=== PATIENT | female | born 1975 | race Caucasian/White ===

== ENCOUNTER 2016-07-04 12:21 | Emergency (ER) | payer OTHER, MEDICAID ==
[~2016-07-04] VITALS: Ht 177.8 cm; Wt 131.0 kg
[~2016-07-04 12:21] MED LIST: PROV10TA PO; Z.0.NO CURRENT MEDS
[2016-07-04 12:22] VITALS: BP 134/80; PULSE 85; RESP 15; TEMP 98.2; O2SAT 97
--- NOTE | 2016-07-04 12:43 | PD ---
HPI Chief Complaint: GI Complaint Time Seen by Provider: 12:28 Travel History International Travel<30 days: No Contact w/Intl Traveler<30days: No Traveled to known affect area: No History of Present Illness HPI This is a 40-year-old female who has a history of intractable vomiting who presents to the emergency department with several days of nausea, constant, moderate severity associated with multiple episodes of emesis yesterday. She denies any abdominal pain, fevers, dysuria, diarrhea or constipation. She's had 2 C-sections in the past. She's had problems with this for years and has been hospitalized several times. She's had multiple diagnostic studies including a capsule endoscopy which never shows anything. She denies marijuana use. She says the only thing that helps her is when she takes a hot shower and 2 months ago she moved to a new apartment where the shower is not as good as her old one. She doesn't take anything for nausea at home. She is concerned because in the past she's had low potassium and she wanted to get that checked. PFSH Past Medical History Anemia: Yes Arthritis: No Asthma: No Autoimmune Disease: No Blood Disorders: No Anxiety: Yes Depression: No Heart Rhythm Problems: No Cancer: No Cardiovascular Problems: No High Cholesterol: No Chemotherapy: No Chest Pain: No Congestive Heart Failure: No COPD: No Cerebrovascular Accident: No Diabetes: No Diminished Hearing: No Endocrine: No Gastrointestinal Disorders: Yes GERD: Yes Glaucoma: No Genitourinary: No Headaches: No Hepatitis: No Hiatal Hernia: No Hypertension: No Immune Disorder: No Kidney Stones: No Musculoskeletal: No Neurologic: No Psychiatric: No Respiratory: No Myocardial Infarction: No Radiation Therapy: No Renal Failure: No Seizures: No Sickle Cell Disease: No Sleep Apnea: No Thyroid Disease: No Ulcer: No ?: Not : 2 Para: 2 Miscarriage: 0 Past Surgical History Abdominal Surgery: No AICD: No Cardiac Surgery: No Section: Yes (x2) Ear Surgery: No Endocrine Surgery: No Eye Surgery: No Genitourinary Surgery: No Gynecologic Surgery: No Joint Replacement: No Oral Surgery: No Pacemaker: No Thoracic Surgery: No Social History Alcohol Use: No Tobacco Use: No Substance Use: No Allergies-Medications (Allergen,Severity, Reaction): Coded Allergies: No Known Allergies (Verified , 07/04/16) Reported Meds & Prescriptions Reported Meds & Active Scripts Active No Active Prescriptions or Reported Medications Review of Systems Except as stated in HPI: all other systems reviewed are Neg Physical Exam Narrative GENERAL:Well appearing, no acute distress SKIN: Warm and dry. HEAD: Atraumatic. Normocephalic. EYES: Pupils equal and round. No injection or drainage. ENT: Moist mucous membranes NECK: Trachea midline. CARDIOVASCULAR: Regular rate and rhythm. No murmur appreciated. RESPIRATORY: Clear to auscultation. Breath sounds equal bilaterally. GASTROINTESTINAL: Abdomen soft, non-tender, nondistended. Bowel sounds in all 4 quadrants. MUSCULOSKELETAL: No obvious deformities. NEUROLOGICAL: Awake and alert. No obvious cranial nerve deficits. Moving all extremities. PSYCHIATRIC: Appropriate mood and affect; insight and judgment normal. Data Data Last Documented VS Vital Signs Date Time Temp Pulse Resp B/P Pulse Ox O2 Delivery O2 Flow Rate FiO2 07/04/16 12:22 98.2 85 15 134/80 97 Orders Complete Blood Count With Diff (07/04/16 12:41) Comprehensive Metabolic Panel (07/04/16 12:41) Lipase (07/04/16 12:41) Ed Urine Pregnancytest Poc (07/04/16 12:41) Metoclopramide Inj (Reglan Inj) (07/04/16 12:45) Sodium Chlor 0.9% 1000 Ml Inj (Ns 1000 M (07/04/16 12:45) Labs Laboratory Tests Test 07/04/16 12:45 White Blood Count 9.1 TH/MM3 Red Blood Count 4.52 MIL/MM3 Hemoglobin 12.2 GM/DL Hematocrit 36.7 % Mean Corpuscular Volume 81.1 FL Mean Corpuscular Hemoglobin 27.0 PG Mean Corpuscular Hemoglobin 33.3 % Concent Red Cell Distribution Width 17.2 % Platelet Count 224 TH/MM3 Mean Platelet Volume 9.1 FL Neutrophils (%) (Auto) 71.3 % Lymphocytes (%) (Auto) 20.9 % Monocytes (%) (Auto) 6.8 % Eosinophils (%) (Auto) 0.5 % Basophils (%) (Auto) 0.5 % Neutrophils # (Auto) 6.5 TH/MM3 Lymphocytes # (Auto) 1.9 TH/MM3 Monocytes # (Auto) 0.6 TH/MM3 Eosinophils # (Auto) 0.0 TH/MM3 Basophils # (Auto) 0.0 TH/MM3 CBC Comment DIFF FINAL Differential Comment Sodium Level 137 MEQ/L Potassium Level 3.2 MEQ/L Chloride Level 104 MEQ/L Carbon Dioxide Level 24.8 MEQ/L Anion Gap 8 MEQ/L Blood Urea Nitrogen 10 MG/DL Creatinine 0.81 MG/DL Estimat Glomerular Filtration 79 ML/MIN Rate Random Glucose 81 MG/DL Calcium Level 8.4 MG/DL Total Bilirubin 0.6 MG/DL Aspartate Amino Transf 16 U/L (AST/SGOT) Alanine Aminotransferase 17 U/L (ALT/SGPT) Alkaline Phosphatase 59 U/L Total Protein 7.9 GM/DL Albumin 3.5 GM/DL Lipase 102 U/L [facility] Medical Decision Making Medical Screen Exam Complete: Yes Emergency Medical Condition: Yes Interpretation(s) Afebrile, no tachycardia, normotensive No leukocytosis Mild hypokalemia Lipase is normal Differential Diagnosis Dehydration, electrolyte abnormality, gastroparesis, cyclic vomiting syndrome, Narrative Course This is a 40-year-old female who presents to the emergency department with nausea and vomiting. She says this is fairly chronic for her. She was placed on a monitor and he was established. Labs were obtained which demonstrates some mild hypokalemia. This was placed in the emergency Department. I think she is safe for discharge. Diagnosis Primary Impression: Cyclical vomiting Qualified Code: G43.A0 - Non-intractable cyclical vomiting with nausea Patient Instructions: General Instructions Additional Instructions: If you develop severe or worsening abdominal pain, fever>100.4, persistent vomiting or inability to eat or drink return to the emergency department immediately. Follow up with your primary care physician in 1-2 days for a check-up. Med/Other Pt SpecificInfo: Prescription(s) given Scripts Metoclopramide (Reglan)10 Mg Tab10 Mg PO QID PRN (NAUSEA) #28 TAB Ref 0 Prov:Pilar Brown MD 07/04/16 Disposition: 01 DISCHARGE HOME Condition: Stable Pilar Brown MD Jul 04, 2016 12:43
[2016-07-04] MEDS ORDERED: SODIUM CHLOR 0.9% 1000 ML INJ 1,000 ML IV ONE (12:45)
[2016-07-04] MEDS ORDERED: METOCLOPRAMIDE HCL 10 MG/2 ML VIAL IV PUSH ONE (12:45)
[2016-07-04 13:18] LABS: AUTOMATED NEUTROPHIL # 6.5 TH/MM3 (1.8-7.7); BASOPHIL % 0.5 % (0.0-2.0); EOSINOPHIL % 0.5 % (0.0-4.0); HEMATOCRIT 36.7 % (35.0-46.0); HEMO FLAGS DIFF FINAL; LYMPH % 20.9 % (9.0-44.0); LYMPHOCYTE # 1.9 TH/MM3 (1.0-4.8); MEAN CELL VOLUME 81.1 FL (80.0-100.0); MEAN CORPUSCULAR HGB CONC 33.3 % (32.0-36.0); MONO % 6.8 % (0.0-8.0); NEUT % 71.3 % (16.0-70.0); PLATELET COUNT 224 TH/MM3 (150-450); RED BLOOD COUNT 4.52 MIL/MM3 (4.00-5.30); RED CELL DISTRIBUTION WIDTH 17.2 % (11.6-17.2); WHITE BLOOD COUNT 9.1 TH/MM3 (4.0-11.0)
[2016-07-04 13:33] LABS: ALT (GPT) 17 U/L (10-53); ANION GAP 8 MEQ/L (5-15); AST (GOT) 16 U/L (15-37); BICARBONATE 24.8 MEQ/L (21.0-32.0); BLOOD UREA NITROGEN 10 MG/DL (7-18); CHLORIDE 104 MEQ/L (98-107); GLOMERULAR FILTRATION RATE 79 ML/MIN (>89); POTASSIUM 3.2 MEQ/L (3.5-5.1); SODIUM (NA) 137 MEQ/L (136-145)
[2016-07-04 13:35] LABS: ALKALINE PHOSPHATASE 59 U/L (45-117); TOTAL BILIRUBIN ADULT 0.6 MG/DL (0.2-1.0)
[2016-07-04] MEDS ORDERED: REGL10TA5 PO (13:41)
[2016-07-04] MEDS ORDERED: POTASSIUM CHLORIDE 10 MEQ CONTROLLED RELEASE TAB PO ONE (13:45)
[2016-07-04 13:56] VITALS: BP 112/65
== END 2016-07-04 14:15 | disposition home or self-care (01) ==
LOC: NEPE 12:21
DX: G43.A0 Cyclical vomiting, in migraine, not intractable (principal); E87.6 Hypokalemia
CPT/HCPCS: 80053; 83690; 84703; 85025; 96361; 96374; 99284; J2765; J7030